=== PATIENT | male | born 1960 | race Caucasian/White ===

== ENCOUNTER 2017-02-21 09:25 | Day surgery (SDC) | payer OTHER ==
[~2017-02-21] VITALS: Ht 195.6 cm; Wt 122.0 kg
[~2017-02-21 09:25] MED LIST: ATOR10TA PO; AZEL137S4 NAS; BUDE10.2 INH; FEXO1TAB29 PO; GABA300C10 PO; MONT10TA9 PO
[2017-02-21] MEDS ORDERED: LACTATED RINGERS 1,000 ML IV SCH (09:39)
[2017-02-21] MEDS ORDERED: BUPIVACAINE/PF 0.5% ONE (10:16)
[2017-02-21] MEDS ORDERED: EPINEPHRINE 1 MG/ML, 1ML ONE (10:16)
[2017-02-21] MEDS ORDERED: THROMBIN 5,000 UNIT VIAL TP ONE ×2 (10:16→13:38)
[2017-02-21] MEDS ORDERED: BACITRACIN 50,000 UNIT ONE (10:17)
[2017-02-21] MEDS ORDERED: MIDAZOLAM 1 MG/ML, 2ML ONE (12:52)
[2017-02-21] MEDS ORDERED: FENTANYL PF 250 MCG/5ML ONE (12:52)
[2017-02-21] MEDS ORDERED: ALBUTEROL/IPRATROPIUM 2.5MG/0.5MG, 3 ML NPPB PRN (13:30)
[2017-02-21] MEDS ORDERED: METOPROLOL 1 MG/ML, 5ML IV PRN (13:30)
[2017-02-21] MEDS ORDERED: ACETAMINOPHEN 325 MG TABLET PO PRN (13:30)
[2017-02-21] MEDS ORDERED: HYDROmorphone 1 MG/ML, 1ML IV PRN (13:30)
[2017-02-21] MEDS ORDERED: PROMETHAZINE 25 MG/ML, 1ML IV PRN (13:30)
[2017-02-21] MEDS ORDERED: ALBUTEROL SULFATE 2.5 MG/3 ML NPPB PRN (13:30)
[2017-02-21] MEDS ORDERED: OXYcodone 5 MG/5 ML ORAL.SOL UDC PO PRN (13:30)
[2017-02-21] MEDS ORDERED: MEPERIDINE/PF 25MG/0.5ML IVPush PRN (13:30)
[2017-02-21] MEDS ORDERED: LORazepam 2 MG/ML, 1ML IVPush PRN (13:30)
[2017-02-21] MEDS ORDERED: hydrALAzine 20 MG/ML, 1ML IV PRN (13:30)
[2017-02-21] MEDS ORDERED: FENTANYL PF 100 MCG/2ML IV PRN (13:30)
[2017-02-21] MEDS ORDERED: BUPIVACAINE/EPI 0.5% 1:200K INFIL ONE (13:39)
[2017-02-21] MEDS ORDERED: BACITRACIN 50,000 UNIT IM ONE (13:39)
[2017-02-21] MEDS ORDERED: HYDROmorphone 2 MG/ML, 1ML ONE ×2 (13:56→15:52)
[2017-02-21] MEDS ORDERED: ROCURONIUM 10 MG/ML,10ML ONE (14:35)
[2017-02-21] MEDS ORDERED: PROPOFOL 10 MG/ML, 20ML ONE (14:35)
[2017-02-21] MEDS ORDERED: CEFAZOLIN 1,000 MG ONE (14:35)
[2017-02-21] MEDS ORDERED: DEXAMETHASONE 4 MG/ML, 1ML ONE (14:35)
[2017-02-21] MEDS ORDERED: GLYCOPYRROLATE 0.2MG/1ML, 5ML ONE (14:35)
[2017-02-21] MEDS ORDERED: ONDANSETRON 2MG/ML, 2ML ONE (14:35)
[2017-02-21] MEDS ORDERED: SUCCINYLCHOLINE 20 MG/ML, 10ML ONE (14:35)
[2017-02-21] MEDS ORDERED: NEOSTIGMINE 1 MG/ML, 10ML ONE (14:35)
[2017-02-21] MEDS ORDERED: ACETAMINOPHEN 650 MG/20.3 ML UDC ONE (15:28)
[2017-02-21] MEDS ORDERED: OXYcodone 5 MG/5 ML ORAL.SOL UDC ONE (15:28)
== END 2017-02-21 17:40 ==
LOC: OUT 09:25 → EDSEX 09:25 → OUT 17:40
PROVIDERS: ATTEND Neurological Surgery
DX: M51.17 Intervertebral disc disorders with radiculopathy, lumbosacral region (principal); M48.061 Spinal stenosis, lumbar region without neurogenic claudication; E78.5 Hyperlipidemia, unspecified; Z88.5 Allergy status to narcotic agent; Z88.8 Allergy status to other drugs, medicaments and biological substances
CPT/HCPCS: 63047; 63048; 72100; J0171; J0330; J0690; J1100; J1170; J2250; J2405; J2704; J3010; J3490; J7120; J2710